=== PATIENT | male | born 1960 | race African-American/Black ===

== ENCOUNTER 2018-09-23 14:16 | Emergency (ER) | payer SELFPAY ==
[2018-09-23 14:36] VITALS: BP 133/89
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
--- NOTE | 2018-09-23 15:23 | Diagnostic Imaging Report ---
LAKESHA PATEL ED [facility] [address] [facility] [address] [id number] Report Submission Date: Sep 23, 2018 3:14:35 PM CDT Patient Study Name: GREGORIO WEN Date: Sep 23, 2018 2:43:53 PM CDT Modality Type: DX Gender: M Description: HAND 3 VIEWS OR MORE : 62 Institution: [facility] Physician: LAKESHA PATEL ED Right hand, 3 views History: Injury Findings: Oblique fracture of the 3rd metacarpal shaft is present. There is mild displacement and no significant angulation. Fracture does not extend to either articular surface. There is no dislocation or abnormal bone destruction. Impression: 3rd metacarpal fracture. Electronically signed on Sep 23, 2018 3:14:35 PM CDT by: Jose BILLS
== END 2018-09-23 15:37 | disposition home or self-care (01) ==
LOC: ED 14:16
DX: S62.309A Unspecified fracture of unspecified metacarpal bone, initial encounter for closed fracture (principal); V28.4XXA Motorcycle driver injured in noncollision transport accident in traffic accident, initial encounter; Y93.55 Activity, bike riding; Y99.8 Other external cause status
CPT/HCPCS: 73130